=== PATIENT | male | born 1995 | race Caucasian/White ===

== ENCOUNTER 2024-04-17 19:48 | Observation (INO) | payer SELFPAY ==
[2024-04-17] VITALS (9 sets, daily range): BP systolic 121–135; BP diastolic 75–97; PULSE 75–109; RESP 14–18; TEMP 37; O2SAT 95–99; BMI 29.9
--- NOTE | ~2024-04-17 | CT_ITS ---
EXAMINATION: CT brain wo con DATE: 04/17/2024 21:43 INDICATION: seizure . TECHNIQUE: Computed tomography (CT) of the head was performed without intravenous contrast. The mA wa s adjusted according to patient size. Iterative reconstruction technique was employed. The dose-lengt h product was 756.67 mGy-cm. COMPARISON: None. FINDINGS: No acute intracranial hemorrhage or extra-axial fluid collection. No hydrocephalus, mass, or herniation. No acute ischemic infarct. Unremarkable dural venous sinus attenuation. No acute osseous abnormality. Posterior scalp contusion/laceration, near the vertex. The aerated spaces are clear. IMPRESSION: No acute intracranial process. Reviewed, dictated and finalized at location K. RGROUND SUPERVISOR
--- NOTE | ~2024-04-17 | MR_ITS ---
MRI of the brain Clinical History: Seizure Technique: Axial and sagittal T1-weighted images were acquired. These were followed by axial T2-weigh jerad, diffusion weighted, gradient, and FLAIR images. Coronal T1-weighted and FLAIR images were also p erformed. Following intravenous administration of 20 cc MultiHance gadolinium, T1-weighted fat-sat im aging was performed in the axial, coronal, and sagittal planes. Findings: There is no abnormal signal in the brain parenchyma. No acute infarct, internal hemorrhage, or mass lesion. Ventricles and subarachnoid spaces are unremarkable. Orbits are unremarkable. Paranasal sinuses and m astoid air cells are clear. Major intracranial flow voids are intact. Sagittal midline structures are intact. No evidence for mesial temporal sclerosis. No abnormal postcontrast enhancement identified. IMPRESSION: Unremarkable exam. Reviewed, dictated and finalized at location . IT REVIEW ASSISTANT IMPRESSION: Unremarkable exam.
--- NOTE | ~2024-04-17 | CT_ITS ---
EXAMINATION: CT cervical spine wo con DATE: 04/17/2024 21:43 INDICATION: fall, head injury TECHNIQUE: Computed tomography (CT) of the cervical spine was performed without intravenous contrast. Automated exposure control and iterative reconstruction technique were employed. The dose-length pro duct was 337.57 mGy-cm. COMPARISON: None. FINDINGS: Vertebral Body Alignment: Intact. Craniocervical and atlantoaxial alignment: No significant degenerative change. Alignment intact. Osseous structures/fracture: No evidence of a lytic or blastic process in the visualized spine. No e vidence of acute fracture. Cervical soft tissues: The paraspinal soft tissues planes are maintained. Degenerative changes: No significant degenerative changes. IMPRESSION: No acute fracture or traumatic malalignment in the cervical spine. Reviewed, dictated and finalized at location K. THCARE SALES REPRESENTATIVE
--- NOTE | 2024-04-17 20:54 | ECG_ITS ---
Test Date: 2024-04-17 21:13:12 Measurements Intervals [place] Rate: 82 P: 13 CO: 141 QRS: 53 QRSD: 83 T: 28 QT: 354 QTc: 415 Interpretive Statements SINUS RHYTHM NORMAL ECG No previous ECG available for comparison Electronically Signed On 04-18-2024 07:05:29 [employer] IN[employer] by Piter Doss D.O.
[2024-04-17 21:04] LABS: Basophils Absolute Auto 0.1 K/mm3 (0.0-0.1); Basophils Percent Auto 0.4 % (0.2-1.2); Eosinophils Absolute Auto 0.2 K/mm3 (0-0.3); Eosinophils Percent Auto 1.2 % (0-4.4); Hematocrit 41.7 % (42.0-52.0); Hemoglobin 14.5 g/dL (14.0-18.0); Immature Granulocyte Absolute 0.12 K/mm3 (0.00-0.031); Immature Granulocyte Percent A 0.7 % (0-0.5); Lymphocytes Absolute Auto 1.81 K/mm3 (0.9-3.2); Lymphocytes Percent Auto 10.6 % (18.3-44.2); Mean Corpuscular HGB Conc 34.8 g/dl (32-36); Mean Corpuscular Hemoglobin 30.2 pg (26-34); Mean Corpuscular Volume 86.9 fl (80-100); Mean Platelet Volume 8.4 fl (7.4-10.4); Monocytes Absolute Auto 1.1 K/mm3 (0.1-0.6); Monocytes Percent Auto 6.5 % (2.6-8.5); Neutrophils Absolute Auto 13.8 K/mm3 (1.3-6.7); Neutrophils Percent Auto 80.6 % (45.5-73.1); Platelet Count Result 353 k/mm3 (150-375); Red Cell Distribution Width 12.2 % (11.5-14.5); White Blood Count 17.1 K/mm3 (4.5-10.0)
--- NOTE | 2024-04-17 21:05 | ED.SEIZURE ---
HPI - Seizure General Chief Complaint: Seizure <Sheri Sanchez PA-C - Last Filed: 04/17/24 23:13> Stated Complaint: seizure <FIORELLA Henriquez Last Filed: 04/17/24 23:13> Time Seen by Provider: 04/17/24 20:53 <FIORELLA Henriquez Last Filed: 04/17/24 23:13> Source: patient <FIORELLA Henriquez Last Filed: 04/17/24 23:13> Mode of arrival: EMS <FIORELLA Henriquez Last Filed: 04/17/24 23:13> Limitations: other (patient does not remember incident) <FIORELLA Henriquez Last Filed: 04/17/24 23:13> History of Present Illness HPI Narrative: This is a 28 year old male that presents to the ER after a seizure while at work. Reports he had just woken up from a brief nap at work. The next thing he remembers paramedics were standing over him. There was witnessed seizure activity by a co-worker. He does not have any previous history of seizures. He hit the back of his head and sustained a laceration. He also bit his tongue. Denies focal numbness or weakness. <Sheri Sanchez PA-C - Last Filed: 04/17/24 23:13> Related Data Home Medications: Home Medications Medication Instructions Recorded Confirmed aripiprazole 5 mg tablet 5 mg PO HS 04/18/24 04/18/24 cyclobenzaprine 10 mg tablet 10 mg PO TID 04/18/24 04/18/24 paroxetine HCl 30 mg tablet 60 mg PO DAILY 04/18/24 04/18/24 <FIORELLA Henriquez Last Filed: 04/17/24 23:13> Allergies/Adverse Reactions: Allergies Allergy/AdvReac Type Severity Reaction Status Date / Time No Known Allergies Allergy Verified 04/17/24 21:06 <FIORELLA Henriquez Last Filed: 04/17/24 23:13> Review of Systems Review of Systems: CONSTITUTIONAL: Denies fever EYES: Denies visual changes GASTROINTESTINAL: Denies vomiting NEUROLOGIC: Denies headache, numbness, or weakness. <Sheri Sanchez PA-C - Last Filed: 04/17/24 23:13> All systems reviewed & are unremarkable except as noted in HPI and below <Sheri Sanchez PA-C - Last Filed: 04/17/24 23:13> [facility] Past Medical History Medical History: Medical History History of mood disorder <Sheri Sanchez PA-C - Last Filed: 04/17/24 23:13> Social History Social History: Social History (Updated 04/17/24 @ 21:08 by Sheri Sanchez PA-C) Smoking status: Current every day smoker Tobacco type: e-cigarettes/vaping Alcohol intake: current Drinks per week: 3 Substance use: current Substance use type: marijuana Do You Feel Safe in your Home?: Yes Lack of Transportation: No Lack of Food: Sometimes True Current Housing: I Have Housing Concerned About Future Housing: No Difficulty Paying Gas/Electric Bills: No Difficulty Paying for Meds: No Currently Unemployed: No Education: Bachelor's Degree Difficulty w/ Childcare or Family Care: No Spiritual care concerns: No <Sheri Sanchez PA-C - Last Filed: 04/17/24 23:13> Exam Narrative: GENERAL: Well-appearing, well-nourished, and in no acute distress. HEAD: Normocephalic. 7cm linear laceration into subcutaneous tissue to the posterior scalp EYES: PERRLA and EOMI. ENT: Nares clear, no rhinorrhea or epistaxis. Mucous membranes moist. Oropharynx without tonsillar hypertrophy exudate or other lesions. Bilateral TMs pearly clements non-bulging NECK: Supple. No adenopathy or masses. C-collar in place CHEST: Clear to auscultation. No respiratory distress. No wheezes rales or rhonchi HEART: Regular rate and rhythm. No murmur heard. Normal peripheral pulses. EXTREMITIES: Normal range of motion. No edema. SKIN: Warm, dry, no rash. NEURO: No focal deficits. Alert and oriented x3. cranial nerves 2-12 grossly intact PSYCH: Normal mood and affect <Sheri Sanchez PA-C - Last Filed: 04/17/24 23:13> Course Course Emergency Course: patient updated on his workup and recommendation for admission <Sheri Sanchez PA-C - Last Filed: 04/17/24 23:13> FINANCIAL OFFICER/PA Physician Supervision I did hear ROLANDA discuss patient with neurologist followed by Dr Gay so was aware of their presentation and recommendations for further workup. I was available in the emergency department for consultation but did not personally evaluate patient and was not directly involved patient's care. <Felisha Alvarado MD - Last Filed: 04/18/24 17:37> Consultations Consultation #1: spoke with Neurology about patient and workup. Will order MRI and EEG. Give 1500 mg loading dose of Keppra and started on 750 mg b.i.d. <Sheri Sanchez PA-C - Last Filed: 04/17/24 23:13> Date: 04/17/24 <Sheri Sanchez PA-C - Last Filed: 04/17/24 23:13> Consultation #2: spoke with hospitalist about patient and workup who accepts admission <Sheri Sanchez PA-C - Last Filed: 04/17/24 23:13> Date: 04/17/24 <Sheri Sanchez PA-C - Last Filed: 04/17/24 23:13> Vital Signs Vital signs: Vital Signs Temperature 98.6 F 04/17/24 19:38 Pulse Rate 109 H 04/17/24 19:38 Respiratory Rate 14 04/17/24 19:38 Blood Pressure 135/90 04/17/24 19:38 Pulse Oximetry 99 04/17/24 19:38 Oxygen Delivery Room Air 04/17/24 19:38 Temperature 97.5 F L 04/18/24 14:33 Pulse Rate 62 04/18/24 16:00 Respiratory Rate 16 04/18/24 14:33 Blood Pressure 121/76 04/18/24 14:33 Pulse Oximetry 99 04/18/24 14:33 Oxygen Delivery Room Air 04/18/24 09:00 <Sheri Sanchez PA-C - Last Filed: 04/17/24 23:13> Vital Signs Temperature 98.6 F 04/17/24 19:38 Pulse Rate 109 H 04/17/24 19:38 Respiratory Rate 14 04/17/24 19:38 Blood Pressure 135/90 04/17/24 19:38 Pulse Oximetry 99 04/17/24 19:38 Oxygen Delivery Room Air 04/17/24 19:38 Temperature 97.5 F L 04/18/24 14:33 Pulse Rate 62 04/18/24 16:00 Respiratory Rate 16 04/18/24 14:33 Blood Pressure 121/76 04/18/24 14:33 Pulse Oximetry 99 04/18/24 14:33 Oxygen Delivery Room Air 04/18/24 09:00 <Felisha Alvarado MD - Last Filed: 04/18/24 17:37> Procedures Laceration Laceration 1: Date: 04/17/24 <Sheri Sanchez PA-C - Last Filed: 04/17/24 23:13> Time: 22:33 <Sheri Sanchez PA-C - Last Filed: 04/17/24 23:13> Site: scalp <FIORELLA Henriquez Last Filed: 04/17/24 23:13> Size (cm): 7 <FIORELLA Henriquez Last Filed: 04/17/24 23:13> Description: linear <FIORELLA Henriquez Last Filed: 04/17/24 23:13> Depth: simple, single layer <FIORELLA Henriquez Last Filed: 04/17/24 23:13> Local Anesthetic: lidocaine 1% and with epi <FIORELLA Henriquez Last Filed: 04/17/24 23:13> Amount of anesthesia used (mL): 3 <FIORELLA Henriquez Last Filed: 04/17/24 23:13> Pre-repair: wound explored <FIORELLA Henriquez Last Filed: 04/17/24 23:13> ====== Skin Level ======: Skin layer closed with: nylon <FIORELLA Henriquez Last Filed: 04/17/24 23:13> Size (cm): 4-0 <FIORELLA Henriquez Last Filed: 04/17/24 23:13> Number of sutures: 7 <Sheri Sanchez PA-C - Last Filed: 04/17/24 23:13> Technique: simple, interrupted <Sheri Sanchez PA-C - Last Filed: 04/17/24 23:13> ====== Subcutaneous Layer ======: ====== Muscle Layer ======: ====== Tendon Layer ======: MDM - Seizure MDM Narrative Medical decision making narrative: patient presents to the emergency department after a seizure today. No previous history of seizures. He is afebrile and nontoxic appearing. Mildly tachycardic upon arrival, this normalized without intervention. no focal deficits noted on exam. CBC with leukocytosis to 17.1. Metabolic panel without concerning findings. EKG without acute changes and baseline troponin is negative. CT brain and cervical spine without acute findings. spoke with Neurology about patient and workup. Will order MRI and EEG. Give 1500 mg loading dose of Keppra and started on 750 mg b.i.d. spoke with hospitalist about patient and workup who accepts admission. Patient's wound was irrigated and closed with sutures. He was updated on tetanus vaccination <FIORELLA Henriquez Last Filed: 04/17/24 23:13> Differential Diagnosis Differential diagnosis: Likely focal seizure, generalized seizure, new onset seizure and epileptic seizure <FIORELLA Henriquez Last Filed: 04/17/24 23:13> Lab Data Attestation: I reviewed the patient's lab results. <FIORELLA Henriquez Last Filed: 04/17/24 23:13> Result diagrams: 04/17/24 20:53 04/17/24 20:53 <FIORELLA Henriquez Last Filed: 04/17/24 23:13> Labs: Lab Results 04/17/24 04/17/24 04/17/24 Range/Units 20:52 20:53 20:54 WBC 17.1 H (4.5-10.0) K/mm3 RBC 4.80 (4.6-6.20) M/mm3 Hgb 14.5 (14.0-18.0) g/dL Hct 41.7 L (42.0-52.0) % MCV 86.9 (80-100) fl MCH 30.2 (26-34) pg MCHC 34.8 (32-36) g/dl RDW 12.2 (11.5-14.5) % Plt Count 353 (150-375) k/mm3 MPV 8.4 (7.4-10.4) fl Immature Gran % (Auto) 0.7 H (0-0.5) % Neut % (Auto) 80.6 H (45.5-73.1) % Lymph % (Auto) 10.6 L (18.3-44.2) % [place] % (Auto) 6.5 (2.6-8.5) % Eos % (Auto) 1.2 (0-4.4) % Baso % (Auto) 0.4 (0.2-1.2) % Lymph # (Auto) 1.81 (0.9-3.2) K/mm3 [place] # (Auto) 1.1 H (0.1-0.6) K/mm3 Eos # (Auto) 0.2 (0-0.3) K/mm3 Baso # (Auto) 0.1 (0.0-0.1) K/mm3 Abs Immat Gran (auto) 0.12 H (0.00-0.031) K/mm3 Absolute Neuts (auto) 13.8 H (1.3-6.7) K/mm3 Absolute Nucleated RBC 0.000 (0.0-0.012) K/mm3 Nucleated RBC % 0.0 (0.0-0.2) % Sodium 137 (137-145) mmol/L Potassium 3.8 (3.4-5.0) mmol/L Chloride 106 (98-107) mmol/L Carbon Dioxide 22 (22-30) mmol/L Anion Gap 9 (4-12) mmol/L BUN 13 (9-20) mg/dL Creatinine 0.80 (0.7-1.3) mg/dL Estim Creat Clear Calc 127 ml/min Estimated GFR > 60 (59 - ) Glucose 95 (65-110) mg/dL Calcium 8.6 (8.4-10.2) mg/dL Magnesium 2.4 H Cancelled (1.6-2.3) mg/dL Total Bilirubin 0.6 (0.2-1.3) mg/dL AST 27 (17-59) U/L ALT 19 (6-50) U/L Alkaline Phosphatase 74 (38-126) U/L Total Creatine Kinase 200 H (55-170) U/L Troponin I < 0.012 (0.000-0.034) ng/mL Total Protein 8.0 (6.3-8.2) g/dL Albumin 4.3 (3.5-5.1) g/dL Ethyl Alcohol < 10 (<10) mg/dL <Sheri Sanchez PA-C - Last Filed: 04/17/24 23:13> Lab Results 04/17/24 04/17/24 04/17/24 Range/Units 20:52 20:53 20:54 WBC 17.1 H (4.5-10.0) K/mm3 RBC 4.80 (4.6-6.20) M/mm3 Hgb 14.5 (14.0-18.0) g/dL Hct 41.7 L (42.0-52.0) % MCV 86.9 (80-100) fl MCH 30.2 (26-34) pg MCHC 34.8 (32-36) g/dl RDW 12.2 (11.5-14.5) % Plt Count 353 (150-375) k/mm3 MPV 8.4 (7.4-10.4) fl Immature Gran % (Auto) 0.7 H (0-0.5) % Neut % (Auto) 80.6 H (45.5-73.1) % Lymph % (Auto) 10.6 L (18.3-44.2) % [place] % (Auto) 6.5 (2.6-8.5) % Eos % (Auto) 1.2 (0-4.4) % Baso % (Auto) 0.4 (0.2-1.2) % Lymph # (Auto) 1.81 (0.9-3.2) K/mm3 [place] # (Auto) 1.1 H (0.1-0.6) K/mm3 Eos # (Auto) 0.2 (0-0.3) K/mm3 Baso # (Auto) 0.1 (0.0-0.1) K/mm3 Abs Immat Gran (auto) 0.12 H (0.00-0.031) K/mm3 Absolute Neuts (auto) 13.8 H (1.3-6.7) K/mm3 Absolute Nucleated RBC 0.000 (0.0-0.012) K/mm3 Nucleated RBC % 0.0 (0.0-0.2) % Sodium 137 (137-145) mmol/L Potassium 3.8 (3.4-5.0) mmol/L Chloride 106 (98-107) mmol/L Carbon Dioxide 22 (22-30) mmol/L Anion Gap 9 (4-12) mmol/L BUN 13 (9-20) mg/dL Creatinine 0.80 (0.7-1.3) mg/dL Estim Creat Clear Calc 127 ml/min Estimated GFR > 60 (59 - ) Glucose 95 (65-110) mg/dL Calcium 8.6 (8.4-10.2) mg/dL Magnesium 2.4 H Cancelled (1.6-2.3) mg/dL Total Bilirubin 0.6 (0.2-1.3) mg/dL AST 27 (17-59) U/L ALT 19 (6-50) U/L Alkaline Phosphatase 74 (38-126) U/L Total Creatine Kinase 200 H (55-170) U/L Troponin I < 0.012 (0.000-0.034) ng/mL Total Protein 8.0 (6.3-8.2) g/dL Albumin 4.3 (3.5-5.1) g/dL Ethyl Alcohol < 10 (<10) mg/dL <Felisha Alvarado MD - Last Filed: 04/18/24 17:37> Imaging Data Radiologist's impression: ITS Impressions Cervical Spine CT 04/17/24 21:44 IMPRESSION: No acute fracture or traumatic malalignment in the cervical spine. Head CT 04/17/24 21:44 IMPRESSION: No acute intracranial process. <Sheri Sanchez PA-C - Last Filed: 04/17/24 23:13> ECG Data EKG #1: ECG completion date: 04/17/24 <Sheri Sanchez PA-C - Last Filed: 04/17/24 23:13> EKG Interpretation: normal rate, sinus rhythm, no ST changes and normal QT <Sheri Sanchez PA-C - Last Filed: 04/17/24 23:13> Critical Care Time Critical Care Time Critical Care Time: No <Sheri Sanchez PA-C - Last Filed: 04/17/24 23:13> Discharge Plan Discharge Clinical Impression: New onset seizure, Laceration <Sheri Sanchez PA-C - Last Filed: 04/17/24 23:13> Patient Disposition: Still a Patient <FIORELLA Henriquez Last Filed: 04/17/24 23:13> Condition: Improved <FIORELLA Henriquez Last Filed: 04/17/24 23:13>
[2024-04-17] MEDS: Please add drug allergy info to patient profile. 1 EACH XX (21:07)
[2024-04-17] MEDS: TETANUS,DIPHTHERIA,AC PERTUSSIS ADULT (0.5 ML) BOOSTRIX IM (21:07)
[2024-04-17 21:16] LABS: Alanine Aminotransferase 19 U/L (6-50); Albumin Level 4.3 g/dL (3.5-5.1); Alkaline Phosphatase 74 U/L (38-126); Anion Gap 9 mmol/L (4-12); Aspartate Amino Transferase 27 U/L (17-59); Bilirubin,Total 0.6 mg/dL (0.2-1.3); Blood Urea Nitrogen 13 mg/dL (9-20); Calcium 8.6 mg/dL (8.4-10.2); Carbon Dioxide 22 mmol/L (22-30); Chloride 106 mmol/L (98-107); Estimated CRCL calculation 127 ml/min; Estimated Glomerular Filt Rate > 60; Glucose 95 mg/dL (65-110); Magnesium 2.4 mg/dL (1.6-2.3); Potassium 3.8 mmol/L (3.4-5.0); Sodium 137 mmol/L (137-145)
[2024-04-17 21:36] LABS: Troponin I < 0.012 ng/mL (0.000-0.034)
[2024-04-17 21:44] LABS: Creatine Kinase 200 U/L (55-170)
[2024-04-17 21:45] LABS: Ethanol < 10 mg/dL (<10)
--- NOTE | 2024-04-17 22:34 | PM.IMHP ---
H&P: HPI History of Present Illness Date/Time: 04/17/24 22:34 Chief Complaint: seizure Narrative: This is a 28-year-old male with no significant past medical history was brought to the emergency room via EMS after having a seizure while at his work, patient has no history of seizure disorder. Patient has been in his usual state of health denies any headaches, vision changes, denies use of recreational drugs denies use of alcohol on a daily basis, denies fevers rigors chills, no nausea no vomiting. Preliminary workup has been essentially nonrevealing. Patient has been admitted for further evaluation management and treatment. EXAMINATION: CT cervical spine wo con DATE: 04/17/2024 21:43 INDICATION: fall, head injury TECHNIQUE: Computed tomography (CT) of the cervical spine was performed without intravenous contrast. Automated exposure control and iterative reconstruction technique were employed. The dose-length product was 337.57 mGy-cm. COMPARISON: None. FINDINGS: Vertebral Body Alignment: Intact. Craniocervical and atlantoaxial alignment: No significant degenerative change. Alignment intact. Osseous structures/fracture: No evidence of a lytic or blastic process in the visualized spine. No evidence of acute fracture. Cervical soft tissues: The paraspinal soft tissues planes are maintained. Degenerative changes: No significant degenerative changes. IMPRESSION: No acute fracture or traumatic malalignment in the cervical spine. Review of Systems Review of Systems: ROS unobtainable: Yes unobtainable due to mental status (post ictal) [facility] Past Medical History Medical History (Updated 04/17/24 @ 22:40 by Sheri Sanchez PA-C) History of mood disorder Social History Social History (Updated 04/17/24 @ 21:08 by Sheri Sanchez PA-C) Smoking status: Current every day smoker Tobacco type: e-cigarettes/vaping Substance use: current Substance use type: marijuana Meds Home Medications and Allergies Allergies Allergy/AdvReac Type Severity Reaction Status Date / Time No Known Allergies Allergy Verified 04/17/24 21:06 Vital Signs Vital Signs - 24 hr 04/17/24 19:38 04/17/24 19:54 04/17/24 20:48 Temperature 98.6 F Pulse Rate 109 H 90 Respiratory Rate 14 18 Blood Pressure 135/90 121/83 Pulse Oximetry 99 99 95 Oxygen Delivery Room Air Room Air 04/17/24 21:03 Temperature Pulse Rate 98 Respiratory Rate Blood Pressure Pulse Oximetry Oxygen Delivery Exam Const: General: comfortable, no acute distress, well developed, alert, awake and average body habitus Nutritional Appearance: average body habitus Orientation/consciousness: patient oriented x3 HENMT: Head: normal to inspection, normocephalic and scalp lesion ( laceration wound) vertex other ( laceration wound) 7 cm Head images: 1. Laceration wound to the scalp sutures in place. Ears: hearing grossly normal bilaterally Face/Nose/Sinus: normal facial exam Face and sinus: normal facial exam Eyes: General: appearance normal, both eyes and all related structures Pupils: Equal, round and reactive pupils present EOM: EOMs intact bilaterally Neck: Neck: full ROM, no lymphadenopathy and no JVD Thyroid: thyroid normal Lymphatic: no lymphadenopathy noted Resp: Effort & Inspection: normal respiratory effort and able to speak in complete sentences Auscultation: clear to auscultation bilaterally Cardio: Jugular venous distension: no JVD Rate: regular rate Rhythm: regular rhythm Heart sounds: S1 normal heart sound present and S2 normal heart sound present GI: GI Palp: Yes Soft to palpation and Yes No hepatosplenomegaly present : General: Yes deferred Skin: Rashes: no rashes Wounds: no wounds Neuro: General: patient oriented x3 and CN's II-XI intact bilaterally Cranial nerves: Yes CN's II-XII intact bilaterally and Yes Equal, round and reactive pupils present Cognition (Neuro): normal cognition Speech: normal speech Gait exam (Neuro): Normal gait present Motor exam (neuro): 5/5 motor strength present throughout Extrem: General: normal to inspection, full ROM, no joint enlargement and no pedal edema H&P: Results Labs Labs: Short CBC 04/17/24 Range/Units 20:53 WBC 17.1 H (4.5-10.0) K/mm3 Hgb 14.5 (14.0-18.0) g/dL Hct 41.7 L (42.0-52.0) % Plt Count 353 (150-375) k/mm3 BMP 04/17/24 20:53 Sodium 137 Potassium 3.8 Chloride 106 Carbon Dioxide 22 BUN 13 Creatinine 0.80 Glucose 95 Calcium 8.6 Cardiac Enzymes 04/17/24 04/17/24 Range/Units 20:52 20:53 Total Creatine Kinase 200 H (55-170) U/L Troponin I < 0.012 (0.000-0.034) ng/mL Liver Function 04/17/24 Range/Units 20:53 Total Bilirubin 0.6 (0.2-1.3) mg/dL AST 27 (17-59) U/L ALT 19 (6-50) U/L Alkaline Phosphatase 74 (38-126) U/L Albumin 4.3 (3.5-5.1) g/dL Assessment and Plan Assessment and plan (1) New onset seizure: Code(s): R56.9 - Unspecified convulsions Status: Acute Assessment and Plan: Placed in observation neurochecks q.4 seizure precautions MRI of the brain in a.m. CT head reviewed supportive care continue to monitor neurology consult (2) Laceration: Status: Acute Assessment and Plan: local care Hospitalist MIPS Advance Care Plan I have confirmed that the patient's Advanced Care Plan is present, code status is documented, or surrogate decision maker is listed in patient medical record.: Yes Medication Reconciliation I have utilized all available resources to obtain, update and review the patients current medications (includes all prescriptions, OTC, herbals, cannabis, and nutritional supplements).: Yes
[2024-04-17] MEDS: ACETAMINOPHEN 500 MG TABLET 1000 MG PO (22:39)
[2024-04-17] MEDS: levETIRAcetam 1500MG/NACL100ML 1,500 MG/100 ML BAG 400 MG IVPB (22:41)
[2024-04-17 22:58] LABS: Add Urine Microscopic? YES; Appearance Urine Clear (Clear); Bacteria Urine None Seen /hpf; Bilirubin Urine Negative (Negative); Blood Urine Negative (Negative); Color Urine Yellow (Yellow); Glucose Urine UA Negative (Negative); Ketones Urine Trace mg/dL (Negative); Leukocyte Esterase Ur Negative LEU/UL (Negative); Nitrate Urine Negative (Negative); Non Pathogenic Casts 0-2; Protein Urine 1+ mg/dL (Negative); RBC Urine 0-2 /hpf (0-2); Specific Grav Ur 1.025 (1.001-1.035); Squamous Epithelial Cell Urine None Seen /hpf (Few); WBC Urine 0-5 /hpf (0-3); pH Urine 5.5 (5.0-9.0)
[2024-04-17 23:11] LABS: Amphetamine Screen Urine Negative (Negative); Barbiturate Screen Urine Negative (Negative); Benzodiazepines Screen Urine Negative (Negative); Cannabinoid Screen Urine Positive (Negative); Cocaine Screen Urine Negative (Negative); Methadone Screen Urine Negative (Negative); Opiate Screen Urine Negative (Negative); Phencyclidine Screen Urine Negative (Negative)
--- NOTE | 2024-04-17 23:55 | ADMGEN ---
This patient, Zane Roe, was admitted to 2 Medical Room 251-01. Patient/family oriented to hospital policies and general routines including ID bracelet, bed and alarms, visiting hours, pain management, procedures, bathroom and other care routines, personal items, smoking policy, room service/diet, and visiting hours. Information on how to activate the Rapid Response Team has been discussed. Patient/Family are encouraged to report perceived risks to care and to ask questions if they do not understand what they are told or what they should do.
[2024-04-18] VITALS (9 sets, daily range): BP systolic 108–121; BP diastolic 63–76; PULSE 60–91; RESP 16–20; TEMP 36.3–36.8; O2SAT 99
--- NOTE | 2024-04-18 07:30 | PC.NURSE ---
pt taken down for MRI
--- NOTE | 2024-04-18 08:08 | PC.NURSE ---
pt returned to room from MRI
[2024-04-18] MEDS: levETIRAcetam Tablet 250 MG, levETIRAcetam Tablet 500 MG 750 MG PO ×2 (08:50→20:24)
[2024-04-18] MEDS: CYCLOBENZAPRINE HCL 10 MG TABLET PO ×2 (08:50→17:30)
[2024-04-18] MEDS: PARoxetine 20 MG TABLET 60 MG PO (08:50)
--- NOTE | 2024-04-18 09:58 | P.PNIM_ITS ---
Progress Note: A&P Assessment and Plan (1) New onset seizure: Code(s): R56.9 - Unspecified convulsions Status: Acute Assessment and Plan: * Cervical spine CT was negative for fracture or traumatic malalignment in the cervical spine * Head CT was negative * Brain MRI negative * EEG planned for today * UDS positive for cannabinoids * Continue Keppra * Continue neuro checks q 4 h * Neurology consulted (2) Laceration: Status: Acute Assessment and Plan: * Continue wound assessment and care (3) Leukocytosis: Code(s): D72.829 - Elevated white blood cell count, unspecified Status: Acute Assessment and Plan: * Initial WBC 17.1-likely reactive * UA was negative for bacteria * continue to trend Time Spent With Patient Time with patient: Greater than 35 minutes Subjective Date/time seen: 04/18/24 09:58 Interval history: Interval history: This is a 28 year old male who presented to the hospital with new onset seizure with fall. Workup in the hospital included a cervical spine CT which was negative for any acute fracture or traumatic malalignment in the cervical spine. Head CT was also negative. Brain MRI was unremarkable. Labs shown a WBC of 17.1, total CK 200, negative troponin. UA shown 1+ urine protein and trace ketones otherwise unremarkable. UDS was positive for cannabinoids. He was given loading dose of Keppra and started on maintenance dosing along with a Boostrix vaccine. Laceration to back of head measuring 7 cm was sutured while in the ER. Neurology consulted. Subjective: Patient reports that he slipped at work causing him to fall and hit his head on the floor. His co-workers found him seizing immediately after hitting his head. He does have a laceration on the back of the head which is well approximated and sutured. He denies any history of seizures in the past. He also denied any lightheadedness, dizziness, vision changes, headache, nausea or vomiting. He reports that he bit his tongue during the seizure and has some sores on both sides of his tongue. Review of Systems Review of Systems: All systems reviewed & are unremarkable except as noted in HPI and below Constitutional: Constitutional: Reports as per HPI and Reports no additional constitutional complaints Eyes: Eyes: Reports as per HPI and Reports no additional eye complaints ENT: Reports system reviewed and no additional complaints, except as documented and Reports as per HPI Cardiovascular: Cardiovascular: Reports as per HPI and Reports no additional cardiovascular complaints Respiratory: Respiratory: Reports as per HPI and Reports no additional respiratory complaints Gastrointestinal: Gastrointestinal: Reports as per HPI and Reports no additional gastrointestinal complaints Genitourinary: Genitourinary: Reports no additional male genitourinary complaints and Reports as per HPI Musculoskeletal: Musculoskeletal: Reports no additional musculoskeletal complaints and Reports as per HPI Integumentary/Breasts: Skin/Breast: Reports system reviewed and no additional complaints, except as docu and Reports as per HPI Neurologic: Reports system reviewed and no additional complaints, except as documented and Reports as per HPI Psychiatric: Psychiatric: Reports no additional psychiatric complaints and Reports as per HPI Exam Narrative: General: In no acute distress, well nourished Head: atraumatic, no encephalopathy Eyes: EOMI, PERRLA 4mm bilaterally, sclera clear ENT: moist mucous membranes, nasal passages clear Neck: supple, no JVD, no adenopathy, trachea midline Cardiac: Normal S1 and S2. No murmur, gallops or friction rubs, peripheral pulses intact. Respiratory: Lungs clear to auscultation, no adventitious lung sounds, currently on room air Gastrointestinal: soft, non-distended, non-tender, normoactive bowel sounds. : voiding without difficulty. Extremities: moves all extremities well, no edema, good ROM, strength 5/5 Skin: Laceration to back of head which is clean, well approximated with sutures. He also has sores on both sides of his tongue from biting during the seizure activity. Neuro: Alert and oriented x4, cranial nerves intact, no neuro deficits. Psych: normal mood, normal affect, interactive Objective Data Vital Signs Vital Signs: Vital Signs - 24 hr 04/17/24 19:38 04/17/24 19:54 04/17/24 20:48 Temperature 98.6 F Pulse Rate 109 H 90 Respiratory Rate 14 18 Blood Pressure 135/90 121/83 Pulse Oximetry 99 99 95 Oxygen Delivery Room Air Room Air 04/17/24 21:03 04/17/24 21:01 04/17/24 22:49 Temperature Pulse Rate 98 100 76 Respiratory Rate 14 16 Blood Pressure 134/90 135/97 H Pulse Oximetry 96 98 Oxygen Delivery 04/17/24 23:00 04/17/24 23:15 04/17/24 23:54 Temperature Pulse Rate 82 75 75 Respiratory Rate 18 18 18 Blood Pressure 129/88 132/75 Pulse Oximetry 95 97 97 Oxygen Delivery Room Air 04/18/24 01:01 04/18/24 04:03 04/18/24 05:22 Temperature 97.4 F L Pulse Rate 69 60 91 Respiratory Rate 16 Blood Pressure 108/63 Pulse Oximetry 99 Oxygen Delivery Intake/Output Intake/Output: Intake & Output 04/15/24 04/16/24 04/17/24 04/18/24 23:59 23:59 23:59 23:59 Intake Total 100 1030 Balance 100 1030 Meds/Results Medications: Active Medications Generic Name Dose Route Start Last Admin Trade Name Freq PRN Reason Stop Dose Admin Acetaminophen 1,000 mg 04/18/24 01:18 Acetaminophen 500 Mg Tablet PO Q6H PRN Mild Pain (1-3) or Fever Al Hydrox/Mg Hydrox/Simethicone 30 ml 04/18/24 01:18 Mag Hydrox/Al Hydrox/Simeth 30 Ml Udc PO Q6H PRN Indigestion Aripiprazole 5 mg 04/18/24 21:00 Aripiprazole 5 Mg Tablet PO HS JESSICA Cyclobenzaprine HCl 10 mg 04/18/24 09:00 04/18/24 08:50 Cyclobenzaprine Hcl 10 Mg Tablet PO 10 mg TID JESSICA Administration Levetiracetam 250 mg/ 750 mg 04/18/24 09:00 04/18/24 08:50 Levetiracetam 500 mg PO 750 mg Q12HR JESSICA Administration Ondansetron HCl 4 mg 04/18/24 01:18 Ondansetron Inj 4 Mg/2 Ml Vial IV PUSH Q6H PRN Nausea And Vomiting Paroxetine HCl 60 mg 04/18/24 09:00 04/18/24 08:50 Paroxetine 20 Mg Tablet PO 60 mg DAILY JESSICA Administration Polyethylene Glycol 17 gm 04/18/24 01:18 Polyethylene Glycol 3350 17 Gm Powd.Pack PO QAM PRN Constipation Radiology Results: ITS Impressions Cervical Spine CT 04/17/24 21:44 IMPRESSION: No acute fracture or traumatic malalignment in the cervical spine. Head CT 04/17/24 21:44 IMPRESSION: No acute intracranial process. Brain MRI 04/18/24 08:49 IMPRESSION: Unremarkable exam. Labs Labs: Laboratory Results - last 24 hr 04/17/24 04/17/2404/17/24 20:52 20:53 20:54 WBC 17.1 H RBC 4.80 Hgb 14.5 Hct 41.7 L MCV 86.9 MCH 30.2 MCHC 34.8 RDW 12.2 Plt Count 353 MPV 8.4 Immature Gran % (Auto) 0.7 H Neut % (Auto) 80.6 H Lymph % (Auto) 10.6 L [place] % (Auto) 6.5 Eos % (Auto) 1.2 Baso % (Auto) 0.4 Lymph # (Auto) 1.81 [place] # (Auto) 1.1 H Eos # (Auto) 0.2 Baso # (Auto) 0.1 Abs Immat Gran (auto) 0.12 H Absolute Neuts (auto) 13.8 H Absolute Nucleated RBC 0.000 Nucleated RBC % 0.0 Sodium 137 Potassium 3.8 Chloride 106 Carbon Dioxide 22 Anion Gap 9 BUN 13 Creatinine 0.80 Estim Creat Clear Calc 127 Estimated GFR > 60 Glucose 95 Calcium 8.6 Magnesium 2.4 H Cancelled Total Bilirubin 0.6 AST 27 ALT 19 Alkaline Phosphatase 74 Total Creatine Kinase 200 H Troponin I < 0.012 Total Protein 8.0 Albumin 4.3 Urine Color Urine Appearance Urine pH Ur Specific [place] Urine Protein Urine Glucose (UA) Urine Ketones Ur Blood (Man) Urine Nitrate Urine Bilirubin Urine Urobilinogen Leukocyte Esterase Rfl Urine RBC Urine WBC Ur Squamous Epith Cells Urine Bacteria Urine Casts Urine Opiates Screen Urine Methadone Screen Ur Barbiturates Screen Ur Phencyclidine Scrn Ur Amphetamine Screen U Benzodiazepines Scrn Urine Cocaine Screen U Cannabinoids Screen Ethyl Alcohol < 10 04/17/24 22:47 WBC RBC Hgb Hct MCV MCH MCHC RDW Plt Count MPV Immature Gran % (Auto) Neut % (Auto) Lymph % (Auto) [place] % (Auto) Eos % (Auto) Baso % (Auto) Lymph # (Auto) [place] # (Auto) Eos # (Auto) Baso # (Auto) Abs Immat Gran (auto) Absolute Neuts (auto) Absolute Nucleated RBC Nucleated RBC % Sodium Potassium Chloride Carbon Dioxide Anion Gap BUN Creatinine Estim Creat Clear Calc Estimated GFR Glucose Calcium Magnesium Total Bilirubin AST ALT Alkaline Phosphatase Total Creatine Kinase Troponin I Total Protein Albumin Urine Color Yellow Urine Appearance Clear Urine pH 5.5 Ur Specific [place] 1.025 Urine Protein 1+ H Urine Glucose (UA) Negative Urine Ketones Trace H Ur Blood (Man) Negative Urine Nitrate Negative Urine Bilirubin Negative Urine Urobilinogen 1.0 Leukocyte Esterase Rfl Negative Urine RBC 0-2 Urine WBC 0-5 Ur Squamous Epith Cells None seen Urine Bacteria None seen Urine Casts 0-2 Urine Opiates Screen Negative Urine Methadone Screen Negative Ur Barbiturates Screen Negative Ur Phencyclidine Scrn Negative Ur Amphetamine Screen Negative U Benzodiazepines Scrn Negative Urine Cocaine Screen Negative U Cannabinoids Screen Positive A Ethyl Alcohol Quality VTE Prophylaxis VTE prophylaxis: mechanical ordered
[2024-04-18] MEDS: NICOTINE (*PBKC) 14 MG PATCH 1 PATCH TRANSDERM (13:29)
--- NOTE | 2024-04-18 15:52 | P.CONNEU_ITS ---
Assessment and Plan Assessment and plan (1) New onset seizure: Code(s): R56.9 - Unspecified convulsions Status: Acute (2) Laceration: Status: Acute Plan It appears the seizure may have been a sequela of a accidental fall on the fish on the floor nevertheless he did bite his tongue and it appears that he has a major motor seizure Followed by postictal state. Currently he is on Keppra 750 mg twice a day. CT scan of brain and MRI were performed which I have reviewed and these did not show any abnormalities. An EEG is recommended and will be done tomorrow. If these are all within normal range the overall risk of recurrent seizure will be low in the neighborhood of 11-13% and has the option to be or not be on the medication will be up to the patient and I shall discuss this after we see the EEG. He should not drive for next 6 months with or without anticonvulsant and this point was brought to the patient's attention. He certainly can work in his current capacity so long as he does not drive so and if he can find somebody dropped him off to work and pick him up. I had a fairly long discussion with him about this issue. He was somewhat shocked to hear this but he will go over all the information provided to him regarding this. He is single but he has a roommate. It should also be pointed out that he has been on Paxil 60 mg a day which is somewhat high dose an SSRI do increase the risk of having seizures or lower the seizure threshold. He is also on low- dose psychotropic medication which can also do so. I would suggest consider increasing the dose of Paxil to 40 mg a day if possible and consultation the psychiatrist. Consult date: 04/18/24 HPI: Zane Roe is a 28 year old male who presented to the hospital yesterday evening with a seizure like spell at work. 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 He apparently slipped the fish on the back of his head and thereafter he went into a full generalized seizure. He bit his tongue on both sides. This was witnessed by 1 of his colleagues. This was a good long spell. After that it took him some time to get back to his normal level and he was found to postictal to some extent even in the emergency room. CT scan of the brain performed emergency room did not show any acute abnormalities. He was given a Keppra and admitted to the hospital for observation. At home he has been on aripiprazole 5 mg at bedtime, Paxil 60 mg a day and cyclobenzaprine 10 mg 3 times a day. There is no prior history of seizures. When asked specific at the no history of febrile seizures as a child. He is not aware of any family history of seizures. He has not had any febrile illnesses recently. At this time he is feeling sore in the tongue by other than that he has a some discomfort in the back of his head where he had stitches. No other significant symptoms. He denies any nausea vomiting. No diplopia. No difficulty speech or swallowing. He does not feel confused. No difficulty with memory. No weakness in upper lower limbs. He denies any warning prior to the onset of the spell. He thinks that he just simply slipped on the fish on the floor. Review of Systems Review of Systems: All systems reviewed & are unremarkable except as noted in HPI and below PMFSH Past Medical History Medical History History of mood disorder Social History Social History (Updated 04/17/24 @ 21:08 by Sheri Sanchez PA-C) Smoking status: Current every day smoker Tobacco type: e-cigarettes/vaping Alcohol intake: current Drinks per week: 3 Substance use: current Substance use type: marijuana Do You Feel Safe in your Home?: Yes Lack of Transportation: No Lack of Food: Sometimes True Current Housing: I Have Housing Concerned About Future Housing: No Difficulty Paying Gas/Electric Bills: No Difficulty Paying for Meds: No Currently Unemployed: No Education: Bachelor's Degree Difficulty w/ Childcare or Family Care: No Spiritual care concerns: No Meds Home Medications and Allergies Home Medications Medication Instructions Recorded Confirmed Type aripiprazole 5 mg tablet 5 mg PO HS 04/18/24 04/18/24 History cyclobenzaprine 10 mg tablet 10 mg PO TID 04/18/24 04/18/24 History paroxetine HCl 30 mg tablet 60 mg PO DAILY 04/18/24 04/18/24 History Allergies Allergy/AdvReac Type Severity Reaction Status Date / Time No Known Allergies Allergy Verified 04/17/24 21:06 Vital Signs Vital Signs - 24 hr 04/17/24 19:38 04/17/24 19:54 04/17/24 20:48 Temperature 98.6 F Pulse Rate 109 H 90 Respiratory Rate 14 18 Blood Pressure 135/90 121/83 Pulse Oximetry 99 99 95 Oxygen Delivery Room Air Room Air 04/17/24 21:03 04/17/24 21:01 04/17/24 22:49 Temperature Pulse Rate 98 100 76 Respiratory Rate 14 16 Blood Pressure 134/90 135/97 H Pulse Oximetry 96 98 Oxygen Delivery 04/17/24 23:00 04/17/24 23:15 04/17/24 23:54 Temperature Pulse Rate 82 75 75 Respiratory Rate 18 18 18 Blood Pressure 129/88 132/75 Pulse Oximetry 95 97 97 Oxygen Delivery Room Air 04/18/24 01:01 04/18/24 04:03 04/18/24 05:22 Temperature 97.4 F L Pulse Rate 69 60 91 Respiratory Rate 16 Blood Pressure 108/63 Pulse Oximetry 99 Oxygen Delivery 04/18/24 09:00 04/18/24 08:00 04/18/24 12:00 Temperature Pulse Rate 69 63 Respiratory Rate Blood Pressure Pulse Oximetry Oxygen Delivery Room Air 04/18/24 14:33 Temperature 97.5 F L Pulse Rate 64 Respiratory Rate 16 Blood Pressure 121/76 Pulse Oximetry 99 Oxygen Delivery Exam Const: General: cooperative, well developed and alert Orientation/consciousness: patient oriented x3 HENMT: Other: Turn but not on both sides greater on the right than left side. Also a area of laceration where stitches have been given in the occipital area approximately 7 cm long. Eyes: Alignment and Position: position normal Pupils: Equal, round and reactive pupils present EOM: EOMs intact bilaterally Neck: Neck: supple Resp: Effort & Inspection: normal respiratory effort Cardio: Rate: regular rate Rhythm: regular rhythm Neuro: General: patient oriented x3 Cranial nerves: Yes CN's II-XII intact bilaterally, Yes facial sensation intact/muscles of mastication intact, Yes Equal, round and reactive pupils present, Yes facial symmetry and Yes Midline tongue present Cognition (Neuro): normal cognition Speech: normal speech Motor exam (neuro): 5/5 motor strength present throughout Sensory Exam: normal sensation Coordination: [id number] test normal and Normal rapid alternating movements of the distal upper extremity present (Neuro) Psych: Mental Status: mental status grossly normal Affect: normal affect Results Labs 04/17/24 20:53 04/17/24 20:53 Labs: Short CBC 04/17/24 Range/Units 20:53 WBC 17.1 H (4.5-10.0) K/mm3 Hgb 14.5 (14.0-18.0) g/dL Hct 41.7 L (42.0-52.0) % Plt Count 353 (150-375) k/mm3 BMP 04/17/24 20:53 Sodium 137 Potassium 3.8 Chloride 106 Carbon Dioxide 22 BUN 13 Creatinine 0.80 Glucose 95 Calcium 8.6 Cardiac Enzymes 04/17/24 04/17/24 Range/Units 20:52 20:53 Total Creatine Kinase 200 H (55-170) U/L Troponin I < 0.012 (0.000-0.034) ng/mL Liver Function 04/17/24 Range/Units 20:53 Total Bilirubin 0.6 (0.2-1.3) mg/dL AST 27 (17-59) U/L ALT 19 (6-50) U/L Alkaline Phosphatase 74 (38-126) U/L Albumin 4.3 (3.5-5.1) g/dL Urine 04/17/24 Range/Units 22:47 Urine Color Yellow (Yellow) Urine Appearance Clear (Clear) Urine pH 5.5 (5.0-9.0) Ur Specific [place] 1.025 (1.001-1.035) Urine Protein 1+ H (Negative) mg/dL Urine Glucose (UA) Negative (Negative) mg/dL
[2024-04-18] MEDS: ARIPiprazole 5 MG TABLET PO (20:25)
[2024-04-19] VITALS: PULSE 63
[2024-04-19 04:00] VITALS: PULSE 65
[2024-04-19 05:43] LABS: Basophils Absolute Auto 0.1 K/mm3 (0.0-0.1); Basophils Percent Auto 0.4 % (0.2-1.2); Eosinophils Absolute Auto 0.2 K/mm3 (0-0.3); Eosinophils Percent Auto 1.8 % (0-4.4); Hematocrit 43.7 % (42.0-52.0); Hemoglobin 14.7 g/dL (14.0-18.0); Immature Granulocyte Absolute 0.06 K/mm3 (0.00-0.031); Immature Granulocyte Percent A 0.5 % (0-0.5); Lymphocytes Absolute Auto 2.79 K/mm3 (0.9-3.2); Lymphocytes Percent Auto 22.1 % (18.3-44.2); Mean Corpuscular HGB Conc 33.6 g/dl (32-36); Mean Corpuscular Hemoglobin 30.8 pg (26-34); Mean Corpuscular Volume 91.6 fl (80-100); Mean Platelet Volume 8.3 fl (7.4-10.4); Monocytes Absolute Auto 0.8 K/mm3 (0.1-0.6); Monocytes Percent Auto 6.4 % (2.6-8.5); Neutrophils Absolute Auto 8.7 K/mm3 (1.3-6.7); Neutrophils Percent Auto 68.8 % (45.5-73.1); Platelet Count Result 296 k/mm3 (150-375); Red Blood Count 4.77 M/mm3 (4.6-6.20); Red Cell Distribution Width 12.3 % (11.5-14.5); White Blood Count 12.6 K/mm3 (4.5-10.0)
[2024-04-19 05:57] VITALS: BP 136/81; PULSE 65; RESP 20; TEMP 36.7; O2SAT 98
[2024-04-19 05:59] LABS: Alanine Aminotransferase 16 U/L (6-50); Albumin Level 4.1 g/dL (3.5-5.1); Alkaline Phosphatase 69 U/L (38-126); Anion Gap 11 mmol/L (4-12); Aspartate Amino Transferase 28 U/L (17-59); Bilirubin,Total 0.8 mg/dL (0.2-1.3); Blood Urea Nitrogen 12 mg/dL (9-20); Calcium 8.8 mg/dL (8.4-10.2); Carbon Dioxide 20 mmol/L (22-30); Chloride 105 mmol/L (98-107); Estimated CRCL calculation 144 ml/min; Estimated Glomerular Filt Rate > 60; Glucose 86 mg/dL (65-110); Potassium 3.8 mmol/L (3.4-5.0); Sodium 136 mmol/L (137-145)
[2024-04-19 08:00] VITALS: BP 120/48; PULSE 68; PULSE 74; RESP 18; TEMP 37; O2SAT 98
[2024-04-19] MEDS: levETIRAcetam Tablet 250 MG, levETIRAcetam Tablet 500 MG 750 MG PO (08:40)
[2024-04-19] MEDS: CYCLOBENZAPRINE HCL 10 MG TABLET PO ×2 (08:41→12:27)
[2024-04-19] MEDS: NICOTINE (*PBKC) 14 MG PATCH 1 PATCH TRANSDERM (08:41)
[2024-04-19] MEDS: PARoxetine 20 MG TABLET 40 MG PO (08:41)
[2024-04-19 12:00] VITALS: PULSE 73
--- NOTE | 2024-04-19 12:29 | WPDNEUROLOGY ---
Neurology EEG Report General Information Date of Study: 04/19/24 TEST Electroencephalogram DIAGNOSIS new onset seizure disorder CONDITION OF RECORDING bedside recording EEG NUMBER [id number] CLINICAL HISTORY history of fall at work with head trauma and seizure EEG DESCRIPTION During wakefulness the background activity consists of posterior dominant alpha 10 hertz with an amplitude of 20-40 microvolts which appears moderately formed and reactive to eye opening. Anteriorly low amplitude mixed frequency activity was seen. Hyperventilation was not performed. Photic stimulation was also not performed. Focal slowing and sharp wave activity was seen frequently over the left temporal area. Sharp wave transients at times appear fairly well-defined. These appeared most predominantly over the left anterior at times over the mid and posterior temporal area. Focal slowing was also seen in these areas. During drowsiness attenuation of background activity was seen. Patient did not progress to stage 2 sleep. IMPRESSION This is an abnormal EEG due to presence of focal slowing and sharp wave activity noted over the left temporal area. Focal slowing may raise possibility of underlying structural lesion. Sharp transients are considered nonspecific focal interictal abnormality. Clinical and radiographic correlation are recommended.
--- NOTE | 2024-04-19 14:19 | P.DS_ITS ---
DS: Admitting Diagnosis Discharge Date 04/19/24 Admitting Diagnosis New onset seizure DS: Discharge Diagnosis Discharge Diagnosis (1) New onset seizure: Code(s): R56.9 - Unspecified convulsions Status: Acute (2) Laceration: Status: Acute (3) Leukocytosis: Code(s): D72.829 - Elevated white blood cell count, unspecified Status: Acute DS: Summary Hospital Course Reason for hospitalization: New onset seizure Hospital Course: This is a 28-year-old male who presented to the hospital on 04/17/2024 a witnessed seizure at work causing fall and hitting the back of his head. He sustained a laceration to the back of the head requiring stitches, 4 cm in length and well approximated without signs of infection. Workup in the hospital included a cervical spine CT which was negative for any fracture or malalignment. Head CT was negative for any intracranial process. Brain MRI was unremarkable. Initial labs showed a white blood cell count of 17.1, magnesium 2.4, total CK 200, troponin negative. UA was obtained and showed 1+ urine protein, trace ketone. Urine drug screen was positive for cannabinoids. EKG showed sinus rhythm with a rate of 82, QTC 415. Patient was started on Keppra. EEG was obtained which shown abnormal with presence of focal slowing and sharp wave activity noted over the left temporal area which can raise possibility of underlying structural lesion or abnormality. Neurology was consulted and recommending decreasing his dose of Paxil from 60 mg to 40 mg. He also is on Abilify which can also cause seizure activity and this was placed on hold. The newest medication was his Abilify and he has been getting this from his primary care physician. Patient is stable for discharge at this time. Vital signs are stable, he is afebrile, he is currently on room air. He denies any fever, chills, nausea, vomiting, abdominal pain, chest pain, shortness a breath, lightheadedness, dizziness, headache, vision changes. He still reports fatigued after having the seizure and does have bite isidro on both sides of his tongue from the seizure. He will need to follow up with Neurology in 2 weeks as well as with his primary care doctor. He will continue on Keppra XR 750 mg at bedtime. Final diagnosis: New onset seizure Status at Discharge Cognitive/behavioral status at discharge: Alert oriented x4 Functional status at discharge: independent ambulation Overall status at discharge: patient is progressing back to baseline Time Spent with Patient Time attestation: Total time spent providing and/or coordinating discharge services: Time spent: Greater than 30 minutes Exam Narrative: General: In no acute distress, well nourished Head: atraumatic, no encephalopathy Eyes: EOMI, PERRLA 4mm bilaterally, sclera clear Cardiac: Normal S1 and S2. No murmur, gallops or friction rubs, peripheral pulses intact. Respiratory: Lungs clear to auscultation, no adventitious lung sounds, currently on room air Gastrointestinal: soft, non-distended, non-tender, normoactive bowel sounds. : voiding without difficulty. Skin: Laceration to back of head which is clean, well approximated with sutures. He also has sores on both sides of his tongue from biting during the seizure activity. Neuro: Alert and oriented x4 DS: Data Data Completed and Pending Completed studies during hospitalization: Cervical spine CT Head CT Brain MRI Pending studies at discharge: None Labs on day of discharge: Labs from last 24 hours 04/19/24 05:28 WBC 12.6 H RBC 4.77 Hgb 14.7 Hct 43.7 MCV 91.6 D MCH 30.8 MCHC 33.6 RDW 12.3 Plt Count 296 MPV 8.3 Immature Gran % (Auto) 0.5 Neut % (Auto) 68.8 Lymph % (Auto) 22.1 [place] % (Auto) 6.4 Eos % (Auto) 1.8 Baso % (Auto) 0.4 Lymph # (Auto) 2.79 [place] # (Auto) 0.8 H Eos # (Auto) 0.2 Baso # (Auto) 0.1 Abs Immat Gran (auto) 0.06 H Absolute Neuts (auto) 8.7 H Absolute Nucleated RBC 0.000 Nucleated RBC % 0.0 Sodium 136 L Potassium 3.8 Chloride 105 Carbon Dioxide 20 L Anion Gap 11 BUN 12 Creatinine 0.70 Estim Creat Clear Calc 144 Estimated GFR > 60 Glucose 86 Calcium 8.8 Total Bilirubin 0.8 AST 28 ALT 16 Alkaline Phosphatase 69 Total Protein 8.0 Albumin 4.1 Procedures/Treatments: None Discharge Plan Discharge Attending physician on discharge: Morro Cobb Consulting providers: Niki Floyd; Felisha Alvarado,Piter M.; Bradley Terrazas; Dorian Anderson Discharging Clinician: Lorrie Larios Anticipated Discharge Date/Time: 04/19/24 08:35 Patient Disposition: Home, Self-Care Activity: as tolerated Diet: as tolerated Discharge Instructions: * Your Paxil dose was decreased to 40mg daily from your 60mg daily as Paxil can be contributing to your seizure activity. * Hold Abilify until you see your primary care doctor back as this can also cause seizures and this was the recently added medication. * You will need to follow up with Primary Care in 1 week * No driving for 6 months. You may continue to work however you will need to have a ride to and from work due to your seizure. * You were prescribed Keppra. Keep taking this medication before bedtime. * You will need to follow up with Neurologist Patient Instructions: Levetiracetam (By mouth), New-Onset Seizure in Adults (DC) Patient Language: [place]ican Stand Alone Forms: General Discharge Information, Work/School Release IP Follow-up/Referrals: Niki Floyd MD [Physician] - Call for Appointment UNKNOWN,DOCTOR [Non-Staff] - Discharge Medications: New paroxetine HCl 20 mg Tablet 40 mg PO QAM Qty: 60 0RF levetiracetam [Keppra XR] 750 mg tablet extended release 24 hr 750 mg PO HS Qty: 30 0RF Continued cyclobenzaprine 10 mg tablet 10 mg PO TID Held aripiprazole 5 mg tablet 5 mg PO HS Hold Instructions: Resume on 04/26/24. Discontinued paroxetine HCl 30 mg tablet 60 mg PO DAILY Date of admission: 04/17/24 22:44 Primary Care Provider: John Gerber Admitting Provider: Butch Gay V. Attending physician on admission: Lorrie Larios Condition: Improved Quality VTE Prophylaxis VTE prophylaxis: mechanical ordered Hospitalist MIPS Heart Failure (Exclusion) Patient has history of Heart Transplant or Left Ventricular Assistive Device?: No IF YES, STOP HERE Heart Failure (Qualifier) Patient has current or prior documentation of LVEF less than or equal to 40%, or mod/servere depressed LVSF?: No IF NO, STOP HERE
== END 2024-04-19 15:20 | disposition home or self-care (01) ==
LOC: ANHED 22:40 → ANH2MED 04-18 07:28
PROVIDERS: Student in an Organized Health Care Education/Training Program; Admitting Provider Internal Medicine; Emergency Provider Physician Assistant; PCP Family Medicine; Visit Provider Nurse Practitioner Acute Care
DX: R56.9 Unspecified convulsions (principal); S01.01XA Laceration without foreign body of scalp, initial encounter; W01.0XXA Fall on same level from slipping, tripping and stumbling without subsequent striking against object, initial encounter; F17.290 Nicotine dependence, other tobacco product, uncomplicated; D72.829 Elevated white blood cell count, unspecified; F12.90 Cannabis use, unspecified, uncomplicated; Z23 Encounter for immunization; Z79.899 Other long term (current) drug therapy
CPT/HCPCS: 12002; 36415; 70450; 70553; 72125; 80053; 80307; 81001; 82077; 82550; 83735; 84484; 85025; 90715; 93005; 95816; 96374; 99285; A9270; A9577; G0378; J1953

== ENCOUNTER 2024-04-28 10:44 | Emergency (ER) | payer SELFPAY ==
[2024-04-28 10:50] VITALS: BP 142/90; PULSE 82; RESP 16; TEMP 36.6; O2SAT 100
[2024-04-28] MEDS: TETANUS,DIPHTHERIA,AC PERTUSSIS ADULT (0.5 ML) BOOSTRIX IM (13:38)
--- NOTE | 2024-04-28 14:18 | ED.GENADULT ---
HPI - General Adult General Chief complaint: Wound/Laceration Stated complaint: lac to L wrist Time Seen by Provider: 04/28/24 13:21 History of Present Illness HPI narrative: This is a 20-year-old male presenting ED with a laceration to his hand. He was opening up a zip tie with a pocket knife when he slipped and stabbed through his palm on his left hand. Unknown last tetanus. No other injuries. No weakness or loss of sensation to the hand. Related Data Home Medications Medication Instructions Recorded Confirmed aripiprazole 5 mg tablet mg PO 05/28/23 05/28/23 Allergies Allergy/AdvReac Type Severity Reaction Status Date / Time No Known Allergies Allergy Verified 05/28/23 10:27 PMFSH Family History Family History Father Hypertension Family history of throat cancer Mother Hypertension Social History Social History Smoking status: Former smoker Tobacco type: e-cigarettes/vaping Alcohol intake: never Lack of Transportation: No Lack of Food: Sometimes True Current Housing: I Have Housing Concerned About Future Housing: No Difficulty Paying Gas/Electric Bills: No Difficulty Paying for Meds: No Currently Unemployed: No Education: Bachelor's Degree Difficulty w/ Childcare or Family Care: No Exam Narrative: APPEARANCE: No apparent distress. Head: atraumatic. EYES: EOMI, NOSE: Atraumatic NECK: Trachea midline RESPIRATORY: No increased rate of breathing CARDIOVASCULAR: RRR, ABDOMINAL: Non-distended MUSCULOSKELETAl: No obvious deformities NEURO: Alert. Moving 4/4 extremities SKIN:: 3 cm laceration to the palm of the hand at the midline, 2 cm laceration along the palm on the radial side PSYCHIATRIC: Normal affect Course Vital Signs Vital signs: Vital Signs Temperature 97.9 F 04/28/24 10:50 Pulse Rate 82 04/28/24 10:50 Respiratory Rate 16 04/28/24 10:50 Blood Pressure 142/90 H 04/28/24 10:50 Pulse Oximetry 100 04/28/24 10:50 Oxygen Delivery Room Air 04/28/24 10:50 Temperature 97.9 F 04/28/24 10:50 Pulse Rate 82 04/28/24 10:50 Respiratory Rate 16 04/28/24 10:50 Blood Pressure 142/90 H 04/28/24 10:50 Pulse Oximetry 100 04/28/24 10:50 Oxygen Delivery Room Air 04/28/24 10:50 Procedures Laceration Laceration 1: Date: 04/28/24 Time: 14:19 Site: hand Side (If applicable): left Size (cm): 3 Description: linear Depth: simple, single layer Local Anesthetic: lidocaine 1% Pre-repair: wound explored and irrigated ====== Skin Level ====== Skin layer closed with: prolene Size (cm): 4-0 Number of sutures: 5 Technique: simple, interrupted ====== Subcutaneous Layer ====== ====== Muscle Layer ====== ====== Tendon Layer ====== Laceration 2: Date: 04/28/24 Site: hand Side (If applicable): left Size (cm): 2 Description: linear Depth: simple, single layer Local Anesthetic: lidocaine 1% Pre-repair: wound explored and irrigated ====== Skin Level ====== Skin layer closed with: prolene Size (cm): 4-0 Number of sutures: 3 Technique: simple, interrupted ====== Subcutaneous Layer ====== ====== Muscle Layer ====== ====== Tendon Layer ====== Medical Decision Making MDM Narrative Medical decision making narrative: -Course: 20-year-old male presenting with 2 lacerations to his palm. No neurologic deficits. Cap refills less than 2 seconds. Wounds were repaired. Patient will need suture removal in 10-14 days. Given return precautions for infection -Shared decision making / Disposition:discharged -RX Keflex 500 mg b.i.d. x5 days Vital Signs Vital Signs: Vital Signs Temperature 97.9 F 04/28/24 10:50 Pulse Rate 82 04/28/24 10:50 Respiratory Rate 16 04/28/24 10:50 Blood Pressure 142/90 H 04/28/24 10:50 Pulse Oximetry 100 04/28/24 10:50 Oxygen Delivery Room Air 04/28/24 10:50 Temperature 97.9 F 04/28/24 10:50 Pulse Rate 82 04/28/24 10:50 Respiratory Rate 16 04/28/24 10:50 Blood Pressure 142/90 H 04/28/24 10:50 Pulse Oximetry 100 04/28/24 10:50 Oxygen Delivery Room Air 04/28/24 10:50 Discharge Plan Discharge Clinical Impression: Laceration Patient Disposition: Home, Self-Care Condition: Stable Instructions: Antibiotic Form, Care For Your Stitches (ED) Additional Instructions: Your sutures need to be removed in 10-14 days. Please return ED if you develop signs of infection. please practice knife safety. Prescriptions: New cephalexin 500 mg capsule 500 mg PO Q12H Qty: 10 0RF No Action paroxetine HCl 30 mg tablet 60 mg PO DAILY Qty: 180 0RF aripiprazole 5 mg tablet PO cyclobenzaprine 10 mg tablet 10 mg PO TID PRN (Reason: muscle spasm) Qty: 30 0RF Follow-up/Referrals: John Gerber MD [Primary Care Provider] - 2 Weeks (Suture removal )
== END 2024-04-28 14:39 | disposition home or self-care (01) ==
PROVIDERS: Emergency Provider Emergency Medicine; PCP Family Medicine
DX: S61.412A Laceration without foreign body of left hand, initial encounter (principal); W26.0XXA Contact with knife, initial encounter; Z23 Encounter for immunization
CPT/HCPCS: 12002; 90471; 90715; 99283